=== PATIENT | female | born 1930 | race Caucasian/White ===

== ENCOUNTER → 2017-03-15 | Outpatient (CLI) | payer MEDICARE, BC ==
[2017-03-15 13:58] LABS: Hemoglobin A1C 6.1 % (4.2-6.1)
== END ==
LOC: LABWHC1 10:21
PROVIDERS: ATTEND Internal Medicine Endocrinology, Diabetes & Metabolism
DX: E55.9 Vitamin D deficiency, unspecified (principal); E03.8 Other specified hypothyroidism; R73.03 Prediabetes
CPT/HCPCS: 36415; 82306; 83036; 84443

== ENCOUNTER → 2018-01-23 | Outpatient (CLI) | payer MEDICARE, BC ==
--- NOTE | 2018-01-23 10:53 | XR ---
EXAMINATION TYPE: XR foot complete RT DATE OF EXAM: 01/23/2018 CLINICAL HISTORY: Patient stepped on glass. TECHNIQUE: Frontal, lateral, and oblique images of the right foot are obtained. COMPARISON: None FINDINGS: There is no acute fracture/dislocation evident in the right foot. There is generalized oss eous demineralization and mild degenerative changes of the hindfoot, midfoot, and forefoot demonstrat ed as osteophytes, joint space narrowing and few scattered subchondral cysts. Very small plantar enth esophyte is present. The overlying soft tissue appears unremarkable. IMPRESSION: There is no acute fracture or dislocation in the right foot. No radiopaque foreign body.
== END | disposition home or self-care (01) ==
LOC: RADXRMAIN 08:38
PROVIDERS: ATTEND Podiatrist Foot Surgery
DX: S92.324A Nondisplaced fracture of second metatarsal bone, right foot, initial encounter for closed fracture (principal); S90.851A Superficial foreign body, right foot, initial encounter